=== PATIENT | female | born 1960 | race Two or more races ===

== ENCOUNTER 2021-10-23 23:15 | Emergency (ER) | payer BC ==
[~2021-10-23] VITALS: Ht 152.4 cm; Wt 79.0 kg
[2021-10-23 23:15] VITALS: BP 130/68
--- NOTE | 2021-10-23 23:21 | PHYS DOC ---
General Adult EDM: Chief Complaint: LOWER EXT PAIN HPI: HPI: Patient is a 61 year old female who is here by private vehicle, with her daughters, report of acute on chronic bilateral thigh pain, left worse than right. She reports that she has had sciatica symptoms for about 2 years. She is seen her primary care physician at [facility] several times for this. She is being prescribed naproxen and methocarbamol. She reports that she has been taking this for so long that she feels like it is not working any longer. Pain is worse when she gets up in the morning, improves at the day, then when she returns home from work, the pain returns. She reports that she tripped over a register on the floor at home tonight, and she reports that she felt pain in her left thigh. She denies any direct fall or trauma. She denies numbness, tingling, motor weakness. She denies urinary symptoms or incontinence. She denies abdominal pain. She does have some back pain, most of her pain is in her bilateral thighs and bilateral buttocks areas. She was reportedly referred to outpatient physical therapy at [facility], and this was about 2 weeks ago, she has not yet heard anything from the physical therapy clinic. She did not know that she could call them herself to discuss this referral, so she has not done that. She has not recontacted her PCP to discuss this issue further. She was supposed to go to work tonight, but she did not feel like she could go, secondary to pain. Review of Systems: Review of Systems: Constitutional: Denies fever or chills. [] HENT: Denies nasal congestion or sore throat. [] Respiratory: Denies cough or shortness of breath. [] Cardiovascular: Denies chest pain or edema. [] GI: Denies abdominal pain, nausea, vomiting : Denies urinary symptoms or incontinence Musculoskeletal: Back pain, bilateral hip and thigh pain Integument: Denies rash. [] Neurologic: Denies headache, focal weakness or sensory changes. Denies numbness or tingling, denies motor weakness or paralysis. Psychiatric: Anxiety as it pertains to current clinical condition. Heart Score: C/O Chest Pain: No Risk Factors: Risk Factors: DM, Current or recent (<one month) smoker, HTN, HLP, family history of CAD, obesity. Risk Scores: Score 0 - 3: 2.5% MACE over next 6 weeks - Discharge Home Score 4 - 6: 20.3% MACE over next 6 weeks - Admit for Clinical Observation Score 7 - 10: 72.7% MACE over next 6 weeks - Early Invasive Strategies Physical Exam: PE: Constitutional: Well developed, well nourished, no acute distress, non-toxic appearance. [] HENT: Normocephalic, atraumatic Eyes: Sclera are anicteric Neck: Normal range of motion, no tenderness, supple, no stridor. [] Cardiovascular:Heart rate regular rhythm, 2 radial and +2 posterior tibial pulses bilaterally Lungs & Thorax: Bilateral breath sounds clear to auscultation [] Abdomen: Abdomen is soft, nondistended, nontender to palpation. No CVA tenderness. Skin: Warm, dry, no erythema, no rash. [] Back: No deformity. No midline tenderness or step-offs. Mildly painful flexion/range of motion. No ecchymoses or evidence of external trauma. Extremities: No tenderness, no cyanosis, no clubbing, ROM intact, no edema. Pelvis is stable. Mild tenderness of bilateral hip and bilateral upper buttock areas. No deformity. No bony tenderness or step-offs. No calf tenderness. Bilateral knees are nontender. Bille ankles and feet are nontender. No foot drop. Neurologic: She is awake, alert, oriented x3, no facial asymmetry, 5 out of 5 motor strength all 4 extremities. No limb ataxia. DTR 2/4 bilateral lower extremities. Sensation is grossly intact. Speech is clear and fluent. Gait is antalgic. Psychologic: Anxious but cooperative EKG: EKG: [] Radiology/Procedures: Radiology/Procedures: IMAGING REPORT Signed PATIENT: RUSSELL TORRES ACCOUNT: [id number] : 1960 LOCATION: ER AGE: 61 SEX: F EXAM STATUS: REG ER ORD. PHYSICIAN: OSMAN GRECO DO REASON: pain PROCEDURE: PELVIS XR PELVIS 1-2V, XR LUMBAR SPINE 2-3V Clinical Indication: Reason: pain / Spl. Instructions: / History: Comparison: None. Findings: There is no acute pelvic fracture. The hip joints are intact. The sacroiliac joints are symmetric. The mineralization appears normal. There are 5 lumbar type vertebral bodies. There is mild degenerative endplate spurring. The vertebral body height and alignment are maintained. There is disc space narrowing and endplate sclerosis of L5/S1. Other disc spaces are relatively maintained. No acute fracture is seen. Cholecystectomy clips. S cattered stool in the colon. IMPRESSION: 1. No acute fracture. 2. Mild spondylosis of the lumbar spine. Electronically signed by: Tylor Martins MD (10/24/2021 12:03 AM) [facility] DICTATED and SIGNED BY: TYLOR MARTINS MD DATE: 10/24/21 0001 Course & Med Decision Making: Course & Med Decision Making Pertinent Labs and Imaging studies reviewed. (See chart for details) P.o. [place] given for pain here. I discussed the findings, differential diagnosis and plan of care with her. I recommend she contact her PCP for follow-up. She should contact the physical therapy clinic for follow-up as well. I explained that she will likely require outpatient MRI, there is no indication for emergent MRI at this time. Plain film studies are unremarkable for any acute fracture. She does have degenerative findings. She is given a work note for today. Return precautions are given. Dragon Disclaimer: Tamie Disclaimer: This electronic medical record was generated, in whole or in part, using a voice recognition dictation system. Departure Departure Impression: Primary Impression: Chronic sciatica Qualified Codes: M54.30 - Sciatica, unspecified side Disposition: HOME / SELF CARE / HOMELESS Condition: STABLE Referrals: ROBLES DOUGLAS MD (PCP) Patient Instructions: Sciatica Additional Instructions: Return to the ER for acute injury or trauma, if you develop paralysis or motor weakness, if you develop incontinence of urine or stool, if you develop severe abdominal pain, temperature 100.4 or higher, if you are unable to walk or bear weight or for other concerns. Please contact your primary care doctor for further evaluation for follow-up. Please contact the physical therapy clinic at to arrange for close follow-up as well. Use the prescription medication as needed for severe pain only. Scripts Hydrocodone Bit/Acetaminophen (HYDROCODONE-APAP 5-325 ) 1 Tab Tablet 1 TAB PO PRN Q6HRS PRN for PAIN, #15 TAB 0 Refills Prov: OSMAN GRECO DO 10/24/21 OSMAN GRECO DO Oct 23, 2021 23:21
[2021-10-23] MEDS ORDERED: HYDROcodone/APAP 5/325MG 1 TAB TABLET PO ONE (23:45)
--- NOTE | 2021-10-24 00:05 | RAD ---
XR PELVIS 1-2V, XR LUMBAR SPINE 2-3V Clinical Indication: Reason: pain / Spl. Instructions: / History: Comparison: None. Findings: There is no acute pelvic fracture. The hip joints are intact. The sacroiliac joints are symmetric. Th e mineralization appears normal. There are 5 lumbar type vertebral bodies. There is mild degenerative endplate spurring. The vertebral body height and alignment are maintained. There is disc space narrowing and endplate sclerosis of L5 /S1. Other disc spaces are relatively maintained. No acute fracture is seen. Cholecystectomy clips. S cattered stool in the colon. IMPRESSION: 1. No acute fracture. 2. Mild spondylosis of the lumbar spine. Electronically signed by: Tylor Martins MD (10/24/2021 12:03 AM) [facility]
[2021-10-24 00:13] LABS: BILIRUBIN,URINE NEGATIVE (NEG); CLARITY,URINE CLEAR; COLOR,URINE YELLOW; NITRITE,URINE NEGATIVE (NEG); PROTEIN,URINE NEGATIVE (NEG-TRACE); UROBILINOGEN,URINE 0.2 mg/dL (0.2 mg/dL)
[2021-10-24 00:14] LABS: BACTERIA,URINE FEW /HPF (0-FEW); RBC,URINE 0 /HPF (0-2)
[2021-10-24] MEDS ORDERED: HYDR-2761 PO (00:27)
== END 2021-10-24 00:36 | disposition home or self-care (01) ==
LOC: ER 23:15
DX: M54.30 Sciatica, unspecified side (principal); M79.652 Pain in left thigh; M79.651 Pain in right thigh; M25.552 Pain in left hip; M47.817 Spondylosis without myelopathy or radiculopathy, lumbosacral region; W22.8XXA Striking against or struck by other objects, initial encounter; Y93.89 Activity, other specified; Y92.89 Other specified places as the place of occurrence of the external cause; Y99.8 Other external cause status
CPT/HCPCS: 72100; 72170; 81001; 99284